=== PATIENT | female | born 1995 | race Hispanic/Latino ===

== ENCOUNTER 2018-02-13 23:24 | Emergency (ER) | payer MEDICAID, OTHER ==
[2018-02-14] MEDS ORDERED: TETANUS/DIPHTHERIA TOXOID [ADULT] 0.5 ML VIAL IM ONE (00:08)
[2018-02-14] MEDS ORDERED: IPRATROPIUM/ALBUTEROL SULFATE 3 ML SOLUTION IH ONE (04:18)
== END 2018-02-14 01:00 | disposition home or self-care (01) ==
LOC: EDH 23:24
DX: S61.217A Laceration without foreign body of left little finger without damage to nail, initial encounter (principal); W18.39XA Other fall on same level, initial encounter; Y93.89 Activity, other specified; Y92.89 Other specified places as the place of occurrence of the external cause; Y99.8 Other external cause status
CPT/HCPCS: 12001; 73140; 90471; 90714

== ENCOUNTER 2020-01-13 00:23 | Emergency (ER) | payer MEDICAID ==
[2020-01-13] MEDS ORDERED: ACETAMINOPHEN EXTRA STRENGTH 500 MG TABLET ONE ×2 (01:11→01:27)
[2020-01-13] MEDS ORDERED: MORPHINE SULFATE 4 MG/1ML SYG ONE (01:12)
[2020-01-13] MEDS ORDERED: LIDOCAINE HCL 2% 20ML ONE (02:41)
[2020-01-13] MEDS ORDERED: DOXYCYCLINE HYCLATE 100 MG TABLET PO ONE (03:07)
[2020-01-13] MEDS ORDERED: CEFTRIAXONE SODIUM 500 MG VIAL ONE (03:07)
[2020-01-13] MEDS ORDERED: LIDOCAINE HCL-MPF 1% 2ML VIAL ONE (03:08)
== END 2020-01-13 03:42 | disposition home or self-care (01) ==
LOC: EDH 00:23
DX: N75.1 Abscess of Bartholin's gland (principal); Z98.890 Other specified postprocedural states
CPT/HCPCS: 56405; 81025; 96372 ×2; 99284; J0696; J2270; J3490 ×2; 36415; 87270